=== PATIENT | female | born 1935 | race Caucasian/White ===

== ENCOUNTER 2021-12-26 09:16 | Day surgery (SDC) | payer OTHER ==
[~2021-12-26] VITALS: Ht 152.4 cm; Wt 77.4 kg
[~2021-12-26 09:16] MED LIST: Aldactazide 251 EACH PO; Amlodipine Besyl5 MG PO; Aspir 8181 MG PO; CHOL10002 PO; CITRACAL PO; COQ1050 MG PO; Crestor20 MG PO; Glucosamine Ch1 EAC4 PO; KRILL OIL500 MG PO; LETR2.5; METO25 PO; METO25ER PO; MULVITMIND PO; NAPR220 PO; NITR.4SL SL; Nitroglycerin1 EAC3 TOP; Omeprazole20 M1 PO; POTA10T PO; PROBIOTIC1 EAC1 PO; SIMV10 PO; Stool Softener100 MG PO; [UNRECOGNIZED DRUG - OTHER] PO
--- NOTE | 2021-12-26 12:35 | NUR ---
PATIENT RETURNED TO [facility] POST PROCEDURE. RIGHT GROIN SITE SOFT AND NONTENDER, NO HEMATOMA, NO BLEEDING. PATIENT A&O. DENIES PAIN.
[2021-12-26] MEDS ORDERED: TICA90TA PO (13:49)
--- NOTE | 2021-12-26 14:20 | NUR ---
DR OVRETON IN TO TALK WITH PT. PT OKAYED TO GO HOME AT 4 PM
--- NOTE | 2021-12-26 16:02 | NUR ---
PATIENT VERBALIZED UNDERSTANDING OF DISCHARGE INSTRUCTIONS AND PRECAUTIONS. PATIENT UP REST ROOM AND BEDSIDE. RIGHT GROIN SITE REMAINS SOFT AND NONTENDER, NO HEMATIOMA, NO BLEEDING. IV SITE DCED BY LATONIA ELDRIDGE. NO FURTHER QUESTIONS.
== END 2021-12-26 15:55 | disposition home or self-care (01) ==
LOC: MHTC 09:16
DX: I25.119 Atherosclerotic heart disease of native coronary artery with unspecified angina pectoris (principal); R93.1 Abnormal findings on diagnostic imaging of heart and coronary circulation; I10 Essential (primary) hypertension; I08.2 Rheumatic disorders of both aortic and tricuspid valves; I77.810 Thoracic aortic ectasia; E78.5 Hyperlipidemia, unspecified; Z95.1 Presence of aortocoronary bypass graft; Z79.82 Long term (current) use of aspirin; Z79.899 Other long term (current) drug therapy
CPT/HCPCS: 36415; 76937; 80048; 85007; 85027; 85347; 85610; 92920; 92921; 93306; 93459; 99152; 99153; A9270; C1725; C1760; C1769; C1887; C1894; J1644; J2250; J3010; J7030; J7050; Q9967